=== PATIENT | male | born 1955 | race Caucasian/White ===

== ENCOUNTER 2017-03-04 11:04 | Inpatient (IN) | payer OTHER, MEDICARE ==
[~2017-03-04] VITALS: Ht 180.3 cm; Wt 100.0 kg
[2017-03-04 12:05] LABS: BASOPHILS 0.1 % (0-2); EOSINOPHILS 0.1 % (0-7); IMMATURE GRANULOCYTES 0.3 % (0-5); LYMPHOCYTES 17.9 % (15-50); MCH 24.2 pg (26.0-34.0); MCHC 29.9 g/dL (31.0-37.0); MCV 80.8 fL (80.0-100.0); MONOCYTES 7.7 % (2-11); NEUTROPHILS 73.9 % (40-80); PLATELET COUNT 250 10x3/uL (130-400); RDW 18.3 % (11.5-14.5); WBC 9.8 10x3/uL (4.8-10.8)
[2017-03-04 12:06] LABS: HEMATOCRIT 19.4 % (42.0-54.0)
[2017-03-04 12:10] LABS: HEMOGLOBIN 5.8 g/dL (13.5-17.5)
[2017-03-04 12:22] LABS: ALBUMIN 3.7 g/dL (3.4-5.0); ALKALINE PHOSPHATASE 127 U/L (46-116); ALT (SGPT) 16 U/L (10-68); BILIRUBIN - TOTAL 0.48 mg/dL (0.2-1.3); CALC OSMOLALITY 278 mosm/kg (275-300); CALCIUM 9.5 mg/dL (8.5-10.1); CARBON DIOXIDE 27.4 mmol/L (21.0-32.0); CHLORIDE - SERUM 101 mmol/L (98-107); CREATININE - SERUM 1.2 mg/dL (0.6-1.3); GLUCOSE 115 mg/dL (74-106); POTASSIUM - SERUM 3.8 mmol/L (3.5-5.1); PROTEIN - SERUM 7.5 g/dL (6.4-8.2); SODIUM 138 mmol/L (136-145); UREA NITROGEN 18 mg/dL (7-18); eGFR NON AFRICAN AMERICAN 65 mL/min (90-120)
[2017-03-04] MEDS ORDERED: LISINOPRIL10 MG PO (12:25)
[2017-03-04 12:27] LABS: % SATURATION 4 % (15-55); IRON 24 ug/dl (35-150); TOTAL IRON BIND CAPACITY 556 ug/dl (260-445)
[2017-03-04] MEDS ORDERED: RELAFEN750 MG PO (12:28)
[2017-03-04] MEDS ORDERED: LOPID600 MG PO (12:29)
[2017-03-04] MEDS ORDERED: HYDROCODONE-APA1 TAB PO (12:32)
[2017-03-04 12:33] LABS: CKMB 0.8 U/L (0.0-3.6); CREATINE KINASE 65 UL (21-232); TROPONIN-I < 0.017 ng/mL (0.000-0.060); UNSAT IRON BIND CAPACITY 532 ug/dl (150-375)
[2017-03-04] MEDS ORDERED: VITAMIN D5000 UNIT PO (12:33)
[2017-03-04] MEDS ORDERED: FISH OIL 1,0001 CA1 PO (12:33)
[2017-03-04 12:39] LABS: INR 1.13 (0.85-1.17); PROTIME 14.1 SECONDS (11.6-15.0)
[2017-03-04 14:22] VITALS: BP 124/68; Ht 180.3 cm; Wt 100.0 kg
[2017-03-04 21:45] VITALS: BP 121/66
[2017-03-05 00:07] LABS: HEMATOCRIT 21.7 % (42.0-54.0)
[2017-03-05 07:25] LABS: BASOPHILS 0.1 % (0-2); HEMOGLOBIN 8.4 g/dL (13.5-17.5); IMMATURE GRANULOCYTES 0.8 % (0-5); LYMPHOCYTES 24.2 % (15-50); MCH 24.9 pg (26.0-34.0); MCHC 31.2 g/dL (31.0-37.0); MCV 79.8 fL (80.0-100.0); MEAN PLATELET VOLUME 9.9 fL (7.4-10.4); NEUTROPHILS 66.9 % (40-80); PLATELET COUNT 209 10x3/uL (130-400); WBC 7.9 10x3/uL (4.8-10.8)
[2017-03-05 07:30] LABS: HEMATOCRIT 26.9 % (42.0-54.0); RBC 3.37 10x6/uL (4.20-6.10)
[2017-03-05 07:31] LABS: INR 1.16 (0.85-1.17); PROTIME 14.4 SECONDS (11.6-15.0)
[2017-03-05 07:49] LABS: ALBUMIN 3.6 g/dL (3.4-5.0); ALKALINE PHOSPHATASE 129 U/L (46-116); ALT (SGPT) 17 U/L (10-68); BILIRUBIN - TOTAL 0.58 mg/dL (0.2-1.3); CALCIUM 9.5 mg/dL (8.5-10.1); CARBON DIOXIDE 22.8 mmol/L (21.0-32.0); CHLORIDE - SERUM 103 mmol/L (98-107); GLUCOSE 136 mg/dL (74-106); POTASSIUM - SERUM 3.7 mmol/L (3.5-5.1); PROTEIN - SERUM 7.4 g/dL (6.4-8.2); SODIUM 137 mmol/L (136-145); eGFR NON AFRICAN AMERICAN 80 mL/min (90-120)
[2017-03-05 07:55] LABS: CALC OSMOLALITY 275 mosm/kg (275-300); UREA NITROGEN 13 mg/dL (7-18)
[2017-03-05 08:53] VITALS: BP 125/54
[2017-03-05 12:50] LABS: HEMATOCRIT 29.7 % (42.0-54.0); HEMOGLOBIN 9.2 g/dL (13.5-17.5)
[2017-03-05 13:34] VITALS: BP 127/65
[2017-03-05 16:53] VITALS: BP 124/64
[2017-03-05 20:00] VITALS: BP 144/69
[2017-03-05 20:44] LABS: HEMATOCRIT 27.7 % (42.0-54.0); HEMOGLOBIN 8.7 g/dL (13.5-17.5)
[2017-03-06] VITALS: BP 116/74
[2017-03-06 04:00] VITALS: BP 132/62
[2017-03-06 06:03] LABS: INR 1.17 (0.85-1.17); PROTIME 14.4 SECONDS (11.6-15.0)
[2017-03-06 06:04] LABS: BASOPHILS 0.1 % (0-2); EOSINOPHILS 1.2 % (0-7); HEMATOCRIT 28.3 % (42.0-54.0); HEMOGLOBIN 8.9 g/dL (13.5-17.5); IMMATURE GRANULOCYTES 0.3 % (0-5); LYMPHOCYTES 27.9 % (15-50); MCH 25.4 pg (26.0-34.0); MCHC 31.4 g/dL (31.0-37.0); MCV 80.6 fL (80.0-100.0); MEAN PLATELET VOLUME 10.3 fL (7.4-10.4); MONOCYTES 12.5 % (2-11); PLATELET COUNT 210 10x3/uL (130-400); RBC 3.51 10x6/uL (4.20-6.10); RDW 17.4 % (11.5-14.5); WBC 7.6 10x3/uL (4.8-10.8)
[2017-03-06 06:07] LABS: CALC OSMOLALITY 283 mosm/kg (275-300); CALCIUM 8.9 mg/dL (8.5-10.1); CARBON DIOXIDE 24.3 mmol/L (21.0-32.0); CHLORIDE - SERUM 108 mmol/L (98-107); GLUCOSE 101 mg/dL (74-106); POTASSIUM - SERUM 3.5 mmol/L (3.5-5.1); SODIUM 143 mmol/L (136-145); eGFR NON AFRICAN AMERICAN 80 mL/min (90-120)
[2017-03-06 06:24] LABS: UREA NITROGEN 9 mg/dL (7-18)
[2017-03-06 07:20] LABS: FOLATE (FOLIC ACID) - SERUM >20.0 ng/mL (>3.0)
[2017-03-06 08:56] VITALS: BP 130/66
[2017-03-06] MEDS ORDERED: NICODERM C1 PATCH .3 TRANSDERM (12:20)
[2017-03-06] MEDS ORDERED: FERROUS SULFAT325 MG PO (12:22)
[2017-03-06] MEDS ORDERED: PEPCID20 MG PO (12:22)
== END 2017-03-06 13:39 | disposition home or self-care (01) | DRG 378 ==
LOC: D.MS 11:04
PROVIDERS: Emergency Medicine; Internal Medicine Gastroenterology
PROC: 0DB68ZX Excision of Stomach, Via Natural or Artificial Opening Endoscopic, Diagnostic (ICD-10-PCS; 2017-03-06)
PROC: 0DBK8ZZ Excision of Ascending Colon, Via Natural or Artificial Opening Endoscopic (ICD-10-PCS; 2017-03-06)
PROC: 0DBL8ZZ Excision of Transverse Colon, Via Natural or Artificial Opening Endoscopic (ICD-10-PCS; 2017-03-06)
PROC: 0W3P8ZZ Control Bleeding in Gastrointestinal Tract, Via Natural or Artificial Opening Endoscopic (ICD-10-PCS; 2017-03-06)
PROC: 0DB98ZX Excision of Duodenum, Via Natural or Artificial Opening Endoscopic, Diagnostic (ICD-10-PCS; principal; 2017-03-06 09:07)
DX: K92.2 Gastrointestinal hemorrhage, unspecified (principal); D62 Acute posthemorrhagic anemia; F17.203 Nicotine dependence unspecified, with withdrawal; D50.9 Iron deficiency anemia, unspecified; K57.90 Diverticulosis of intestine, part unspecified, without perforation or abscess without bleeding; K20.9 Esophagitis, unspecified; K29.70 Gastritis, unspecified, without bleeding; K29.80 Duodenitis without bleeding; K31.819 Angiodysplasia of stomach and duodenum without bleeding; K63.5 Polyp of colon; K64.4 Residual hemorrhoidal skin tags; K64.8 Other hemorrhoids

== ENCOUNTER 2017-05-14 05:37 | Day surgery (SDC) | payer OTHER ==
[~2017-05-14] VITALS: Ht 180.3 cm; Wt 106.6 kg
--- NOTE | ~2017-05-14 | OP ---
PATIENT NAME: CHAPINCITO BAIRD MEDICAL RECORD: [id number] :51 LOCATION:D.OPS ADMISSION DATE: SURGEON: TAL FLANNERY MD DATE OF OPERATION: 05/14/2017 PREOPERATIVE DIAGNOSES: 1. Gastric antral vascular ectasias. 2. History of complex colon polyps. POSTOPERATIVE DIAGNOSES: 1. Gastric antral vascular ectasias. 2. History of complex colon polyps. PROCEDURES: 1. Total colonoscopy to cecum. 2. Hot biopsy forceps polypectomies times 2. 3. Colonic polypectomy utilizing the argon plasma plate hanger, which is a radiofrequency type of ablation of a benign colonic process. 4. Esophagogastroduodenoscopy with argon plasma coagulation therapy to areas of gastric antral vascular ectasias, which appeared to have bled recently. SURGEON: Tal Flannery MD CAFE AIDE: None. BLOOD LOSS: Minimal. ANESTHESIA: General. COMPLICATIONS: None. I saw the patient in the holding area. He specifically told me that we were only going to do a colonoscopy today. He then went to sleep. I was notified by my office that in my note, I had stated that we were going to do an upper endoscopy as well and he agreed to this. I spoke to his family. They concurred that he was to have an upper endoscopy as well today. We went out and had them sign the consent form. ENDOSCOPIC COURSE: The patient was conveyed to the operating room electively on 05/14/2017. General anesthesia was induced by the anesthesia staff. The patient was placed in the José position. A digital rectal examination was performed. A colonoscope was inserted through the anus. It was easily advanced to the cecum. The prep was adequate. I dragged the folds. The pullback was greater than 18-minute pullback. The first polyp identified was within the ascending colon. It was the largest of the polyps. All 3 were sessile polyps, but this polyp in the ascending colon, was a 2.5 x 1.4 cm polyp. It was cold biopsied multiple times. I then ablated the polypoid base with the argon plasma plate hanger utilizing the right colon setting in the forced mode. I then slowly withdrew the endoscope. I dragged the folds. I irrigated and aspirated extensively. Two more polyps were noted. These were sessile polyps and they were removed in their entireties utilizing the hot biopsy forceps polypectomy technique. A retroflexed view was obtained in the rectum. I then unretroflexed the scope and removed it under direct vision. OPERATIVE REPORT [id number] CHAPINCITO BAIRD We then brought a gastroscope around. A bite block was inserted. A gastroscope was inserted into the mouth and advanced easily into the hypopharynx. The esophagus was easily intubated as were the stomach and duodenum. Upon withdrawal, retroflexed and angulus views were obtained. No biopsies were obtained. I then ablated the areas of gastric antral vascular ectasias with the argon plasma plate hanger utilizing the esophageal setting in the forced mode. The endoscope was then withdrawn under direct vision. The patient was then extubated and conveyed to post-anesthesia care unit where he was in stable condition. He will be dismissed home and I will see him in the office in 2-3 weeks. Our plan for his next colonoscopy with the argon plasma plate hanger to take place in 1 year. TRANSINT:[id number] Voice Confirmation ID: [id number] DOCUMENT ID: [id number] TAL FLANNERY MD at 1042 CC: [id number] DICTATION DATE: 05/14/17 1205 BALANCE TRUER: 05/14/17 1233 [facility] 05/14/17 [facility] [address] [place] [address]
[~2017-05-14 05:37] MED LIST: FERROUS SULFAT325 MG PO; FISH OIL 1,0001 CA1 PO; HYDROCODONE-APA1 TAB PO; LISINOPRIL10 MG PO; LOPID600 MG PO; NICODERM C1 PATCH .3 TRANSDERM; PEPCID20 MG PO; RELAFEN750 MG PO; VITAMIN D5000 UNIT PO; ZOCOR20 MG PO
[2017-05-14 06:31] LABS: HEMOGLOBIN 14.5 g/dL (13.5-17.5); MCH 26.9 pg (26.0-34.0); MCV 81.5 fL (80.0-100.0); MEAN PLATELET VOLUME 10.7 fL (7.4-10.4); RBC 5.4 10x6/uL (4.20-6.10); RDW 15.8 % (11.5-14.5); WBC 11.5 10x3/uL (4.8-10.8)
[2017-05-14 06:35] VITALS: BP 116/68; Ht 180.3 cm; Wt 106.6 kg
== END 2017-05-14 11:35 | disposition home or self-care (01) ==
LOC: D.OPS 05:37 → D.PAN 07:30 → D.OPS 08:00
PROVIDERS: Anesthesiology
DX: K31.811 Angiodysplasia of stomach and duodenum with bleeding (principal); D12.2 Benign neoplasm of ascending colon; K63.5 Polyp of colon; Z86.010 Personal history of colon polyps; Z01.812 Encounter for preprocedural laboratory examination

== ENCOUNTER 2018-05-27 07:42 | Day surgery (SDC) | payer OTHER ==
[~2018-05-27] VITALS: Ht 177.8 cm; Wt 114.1 kg
--- NOTE | ~2018-05-27 | HP ---
PATIENT: CHAPINCITO BAIRD MEDICAL RECORD: [id number] ACCOUNT: [id number] LOCATION:[facility] : 51 ADMISSION DATE: 05/27/18 PCP: TALITA RUIZ MD HISTORY AND PHYSICAL EXAMINATION HISTORY OF PRESENT ILLNESS: The patient has a history of gastric antral vascular ectasias. He has had no melena. No abdominal pain. Today, he is here for surveillance colonoscopy. The patient underwent a colonoscopy with polypectomy utilizing the argon plasma radio commentator in April of 2017. The patient had 3 colon polyps. The largest polyp was in the ascending colon and it was a 2.5 x 1.4 cm polyp. On pathology, this polyp was a tubulovillous adenoma with focal low-grade atypia/dysplasia. HOME MEDICINES: Norvasc, Pepcid, [place], lisinopril, Zocor. ALLERGIES: FLEXERIL, NIACIN. SOCIAL HISTORY: Ex-smoker. PAST MEDICAL AND SURGICAL HISTORY: History of colon polyps. REVIEW OF SYSTEMS: Negative for CVA or seizures. Negative for diabetes or thyroid problems. PHYSICAL EXAMINATION: GENERAL: The patient does not appear acutely ill. He does not appear chronically ill. VITAL SIGNS: Reviewed. EARS: External ears appear normal. EYES: Extraocular movements are intact. NECK: Trachea is midline. CHEST: No intercostal retractions. PULMONARY: Nonlabored, no stridor. IMPRESSION: History of complex colon polyps. PLAN: Colonoscopy and polypectomy if any residual or recurrent polyps are identified. TRANSINT:[id number] Voice Confirmation ID: [id number] DOCUMENT ID: [id number] CARLYLE FLANNERY MD CC: Aman HOWELL MICHAEL S [id number] DICTATION DATE: 05/27/18 1041 GUEST RELATIONS OFFICER: 05/27/18 1110 [facility] [address] [place] [address]
--- NOTE | ~2018-05-27 | OP ---
PATIENT NAME: CHAPINCITO BAIRD MEDICAL RECORD: [id number] :51 LOCATION:D.OPS ADMISSION DATE: SURGEON: TAL FLANNERY MD DATE OF OPERATION: 05/27/2018 PREOPERATIVE DIAGNOSIS: History of complex polyp of the ascending colon, which contained low-grade atypia. POSTOPERATIVE DIAGNOSES: History of complex polyp of the ascending colon, which contained low-grade atypia with no evidence of regrowth or persistence of the polyp. PROCEDURES: Total colonoscopy to cecum. SURGEON: Tal Flannery MD EXCEPTIONAL NEEDS TEACHER: None. BLOOD LOSS: Minimal. ANESTHESIA: IV sedation. COMPLICATIONS: None. A consent form was signed. ENDOSCOPIC COURSE: The patient was conveyed to the endoscopy suite electively on 05/27/2018. IV sedation was induced by the anesthesia staff. The patient was placed in the José position. A digital rectal examination was performed. The prostate was symmetric and without nodules. A colonoscope was inserted through the anus. It was easily advanced to the cecum. The prep was excellent. I intubated the ileum, which appeared normal. I slowly withdrew the endoscope. I passed up and back in the ascending colon about 5 times utilizing normal imaging as well as narrow band imaging. I saw no persistence or a regrowth of the polyp. I then slowly withdrew the endoscope. I irrigated and aspirated extensively. I dragged the folds. The pullback was greater than a 14-minute pullback. A retroflexed view was obtained in the rectum. I then unretroflexed the scope and removed it under direct vision. There is no need for the patient to follow up with me in the office. I will plan for his next surveillance colonoscopy to take place in 3 years. TRANSINT:[id number] Voice Confirmation ID: [id number] DOCUMENT ID: [id number] TAL FLANNERY MD CC: [id number] DICTATION DATE: 05/27/18 1114 STOREKEEPER HELPER: 05/27/18 1252 [facility] 05/27/18 [place] [id number] [place] [id number]
[2018-05-27 08:15] LABS: HEMATOCRIT 43.2 % (42.0-54.0); HEMOGLOBIN 14.3 g/dL (13.5-17.5); MCH 29.1 pg (26.0-34.0); MCHC 33.1 g/dL (31.0-37.0); RBC 4.91 10x6/uL (4.20-6.10); RDW 13.1 % (11.5-14.5); WBC 9.4 10x3/uL (4.8-10.8)
[2018-05-27] MEDS ORDERED: NORVASC5 MG PO (08:38)
[2018-05-27 08:45] VITALS: BP 128/69; Ht 177.8 cm; Wt 114.1 kg
--- NOTE | 2018-05-27 11:38 | NUR ---
DC INSTRUCTIONS GIVEN TO PT/FAMILY. STATE UNDERSTANDING. DC'D IV CATH FULLY INTACT.
--- NOTE | 2018-05-27 11:53 | NUR ---
PT LEFT UNIT VIA WC AT 1145
== END 2018-05-27 11:45 | disposition home or self-care (01) ==
LOC: D.OPS 07:42
PROVIDERS: Anesthesiology; ATTEND Surgery
DX: Z86.010 Personal history of colon polyps (principal); Z01.812 Encounter for preprocedural laboratory examination; Z87.891 Personal history of nicotine dependence; Z79.891 Long term (current) use of opiate analgesic; Z79.899 Other long term (current) drug therapy; Z88.8 Allergy status to other drugs, medicaments and biological substances

== ENCOUNTER 2018-08-29 08:22 | Day surgery (SDC) | payer OTHER ==
[~2018-08-29] VITALS: Ht 177.8 cm; Wt 115.7 kg
[~2018-08-29 08:22] MED LIST changes: +CELEXA20 MG PO; +KLONOPIN0.5 MG PO; +LIPITOR20 MG PO; +NORVASC5 MG PO
[2018-08-29 08:43] LABS: HEMATOCRIT 41.5 % (42.0-54.0); HEMOGLOBIN 14.2 g/dL (13.5-17.5); MCH 29.3 pg (26.0-34.0); MCHC 34.2 g/dL (31.0-37.0); MCV 85.6 fL (80.0-100.0); MEAN PLATELET VOLUME 10.4 fL (7.4-10.4); RBC 4.85 10x6/uL (4.20-6.10); RDW 13.3 % (11.5-14.5); WBC 9.4 10x3/uL (4.8-10.8)
[2018-08-29] MEDS ORDERED: ZQUIL (09:45)
[2018-08-29 09:52] VITALS: BP 140/71; Ht 177.8 cm; Wt 115.7 kg
--- NOTE | 2018-08-29 14:07 | NUR ---
OPA IN AIRWAY ON ADMIT
--- NOTE | 2018-08-29 15:00 | NUR ---
REC'D FROM RR. FAMILY AT BEDSIDE. COFFEE BROUGHT TO PT.
--- NOTE | 2018-08-29 15:15 | NUR ---
FL DIET SERVED TO PATIENT.
--- NOTE | 2018-08-29 15:30 | NUR ---
TOLERATED FL DIET. SPOUSE AT BEDSIDE. PT RELATES HE CAN BREATH BETTER ALREADY.
--- NOTE | 2018-08-29 16:00 | NUR ---
IV DC'D WITH CATHETER INTACT. WRITTEN AND VERBAL DC INST. GIVEN TO PT ALONG WITH RX. VERBALIZED UNDERSTANDING.
--- NOTE | 2018-08-29 16:15 | NUR ---
DC'D HOME WITH FAMILY VIA PRIVATE VEHICLE. STABLE AT TIME OF DC.
--- NOTE | 2018-09-01 18:40 | HP ---
PATIENT: CHAPINCITO SINGH MEDICAL RECORD: [id number] ACCOUNT: [id number] LOCATION:[facility] : 51 ADMISSION DATE: 08/29/18 PCP: TALITA RUIZ MD HISTORY AND PHYSICAL EXAMINATION HISTORY OF PRESENT ILLNESS: Mr. Singh is a 62-year-old male who is having problems with chronic nasal obstruction. He has failed aggressive medical management. He has septal deviation and turbinate hypertrophy. He is being admitted for septoplasty and bilateral inferior turbinate reductions. PAST MEDICAL HISTORY: Includes hypertension, GI bleed. CURRENT MEDICATIONS: Lisinopril, tamsulosin, famotidine, atorvastatin, amlodipine, hydrocodone, fluticasone. ALLERGIES: FLEXERIL. PHYSICAL EXAMINATION: GENERAL: Healthy-appearing, developmentally normal. FACE: Normal and symmetric. EYES: Sclerae and conjunctivae are normal. EARS: Canals and TMs normal. NOSE: Right septal deviation, large inferior turbinates, no masses, polyps. ORAL CAVITY AND OROPHARYNX: Tongue protrudes in the midline. Palate is normal. NECK: No masses, no lymphadenopathy. CHEST: Clear. CARDIOVASCULAR: Regular rate and rhythm, no murmur. EXTREMITIES: Normal. IMPRESSION: Refractory nasal obstruction, septal deviation, and turbinate hypertrophy. PLAN: Septoplasty and bilateral inferior turbinate reduction. TRANSINT:[id number] Voice Confirmation ID: [id number] DOCUMENT ID: [id number] ANA GRANGER MD at 1840 CC: [id number] DICTATION DATE: 08/28/18 0844 ELECTROTYPER APPRENTICE: 08/28/18 0912 [facility] 08/29/18 [place] [id number] [place] [address]
--- NOTE | 2018-09-01 18:40 | OP ---
PATIENT NAME: CHAPINCITO BAIDR MEDICAL RECORD: [id number] :51 [facility] AD[facility] DATE: SURGEON: ANA GRANGER MD DATE OF OPERATION: 08/29/2018 PREOPERATIVE DIAGNOSES: Nasal obstruction, septal deviation, and turbinate hypertrophy. POSTOPERATIVE DIAGNOSES: Nasal obstruction, septal deviation, and turbinate hypertrophy. PROCEDURE: Septoplasty, bilateral inferior turbinate reduction. SURGEON: Ana Granger MD ANESTHESIA: General orotracheal. BLOOD LOSS: 2 cc. SPECIMENS: None. NASAL PACKING: Matthews splints bilaterally. COMPLICATIONS: None. DISPOSITION: Recovery stable. PROCEDURE NOTE: He was brought to the operating room and placed in supine position, sedated and intubated by anesthesia. He was positioned, prepped and draped for nasal surgery. Using a headlight and nasal speculum, both sides of the nose were examined. The septum, floor of the nose, and inferior turbinates were injected with a total of less than 2 cc of 1% lidocaine with 1:100,000 epinephrine. He had been decongested with Afrin preoperatively. Two Afrin pledgets were placed in each side of the nose. After decongestion, all the Afrin pledgets were removed. A right-sided Tavernier incision was made and ipsilateral mucoperichondrial flap was elevated. A bony spur was isolated inferiorly on the right side, the old cartilage was dissected free and removed. A chisel was used to remove the bony portion of the septal spur. Bony cartilaginous junction was disarticulated from the maxillary spine. Relaxing incisions were made in the cartilage. The bony cartilaginous junction was disarticulated and scissors were used to make a cut above and below the bony spur that was removed posteriorly. This allowed the septum to fall to midline. Both inferior turbinates were medialized with a freer. The inferior redundant portion was taken down with a [place]. Suction cautery on a setting of 26 was used to stop any bleeding and then they were both outfractured with a [place] elevator, had a good nasal airway all the way back to the nasopharynx on both sides of straight septum. The Tavernier incision was closed with interrupted 4-0 chromic. Matthews splints were placed bilaterally with some mupirocin ointment and sutured to the anterior membranous septum with a 2-0 Prolene on a Emigdio needle. He was awakened, extubated, and transported to recovery in good condition. No complications. TRANSINT:[id number] Voice Confirmation ID: [id number] DOCUMENT ID: [id number] OPERATIVE REPORT [id number] CHAPINCITO BAIRD, ANA FRASER at 1840 CC: [id number] DICTATION DATE: 08/29/18 1351 RANGE RIDER: 08/29/18 1439 [facility] 08/29/18 [place] [id number] [place] [address]
== END 2018-08-29 16:15 | disposition home or self-care (01) ==
LOC: D.OPS 08:22 → D.PAN 09:00 → D.OPS 09:00
PROVIDERS: Anesthesiology; ATTEND Otolaryngology
DX: J34.89 Other specified disorders of nose and nasal sinuses (principal); J34.2 Deviated nasal septum; J34.3 Hypertrophy of nasal turbinates; Z01.812 Encounter for preprocedural laboratory examination

== ENCOUNTER 2019-09-11 06:23 | Emergency (ER) | payer MEDICARE ==
[~2019-09-11] VITALS: Ht 177.8 cm; Wt 126.4 kg
[~2019-09-11 06:23] MED LIST changes: +ZQUIL
[2019-09-11 06:29] VITALS: Ht 177.8 cm; Wt 126.4 kg
[2019-09-11] MEDS ORDERED: LISINOPRIL-HCT1 EAC4 PO (06:31)
[2019-09-11] MEDS ORDERED: HYDROCODON-ACE1 EA10 PO (06:31)
[2019-09-11] MEDS ORDERED: NORVASC5 MG PO (06:32)
[2019-09-11] MEDS ORDERED: FLOMAX0.4 MG PO (06:32)
[2019-09-11 07:01] LABS: BASOPHILS 0.1 % (0-2); EOSINOPHILS 1.3 % (0-7); HEMATOCRIT 33.4 % (42.0-54.0); HEMOGLOBIN 10.8 g/dL (13.5-17.5); IMMATURE GRANULOCYTES 0.3 % (0-5); LYMPHOCYTES 29.3 % (15-50); MCH 28.3 pg (26.0-34.0); MCHC 32.3 g/dL (31.0-37.0); MCV 87.4 fL (80.0-100.0); MEAN PLATELET VOLUME 10.1 fL (7.4-10.4); MONOCYTES 7.8 % (2-11); NEUTROPHILS 61.2 % (40-80); PLATELET COUNT 190 10x3/uL (130-400); RBC 3.82 10x6/uL (4.20-6.10); RDW 13.5 % (11.5-14.5); WBC 9.5 10x3/uL (4.8-10.8)
[2019-09-11 07:06] LABS: APTT 28.3 SECONDS (22.8-39.4); INR 1.01 (0.85-1.17); PROTIME 13.3 SECONDS (11.6-15.0)
[2019-09-11 07:09] LABS: CALC OSMOLALITY 275 mosm/kg (275-300); CALCIUM 8.8 mg/dL (8.5-10.1); CARBON DIOXIDE 26.5 mmol/L (21.0-32.0); CHLORIDE - SERUM 102 mmol/L (98-107); CREATININE - SERUM 1.2 mg/dL (0.6-1.3); POTASSIUM - SERUM 3.8 mmol/L (3.5-5.1); SODIUM 135 mmol/L (136-145); UREA NITROGEN 21 mg/dL (7-18); eGFR NON AFRICAN AMERICAN 64 mL/min (90-120)
[2019-09-11 07:10] LABS: GLUCOSE 154 mg/dL (74-106)
[2019-09-11 07:21] LABS: ALBUMIN 3.3 g/dL (3.4-5.0); ALKALINE PHOSPHATASE 89 U/L (30-120); ALT (SGPT) 61 U/L (10-68); BILIRUBIN - TOTAL 0.46 mg/dL (0.2-1.3); LIPASE 76 U/L (73-393); PRO BNP 19 pg/mL (0-125); PROTEIN - SERUM 6.6 g/dL (6.4-8.2)
[2019-09-11 07:22] LABS: TROPONIN-I < 0.017 ng/mL (0.000-0.060)
[2019-09-11 09:07] VITALS: BP 152/74
== END 2019-09-11 09:07 | disposition other institution (70) ==
LOC: D.ER 06:23
PROVIDERS: Family Medicine
DX: K29.71 Gastritis, unspecified, with bleeding (principal); D64.9 Anemia, unspecified; I10 Essential (primary) hypertension; K21.9 Gastro-esophageal reflux disease without esophagitis